=== PATIENT | male | born 1965 | race Hispanic/Latino ===

== ENCOUNTER 2021-05-16 14:42 | Emergency (ER) | payer OTHER ==
[~2021-05-16] VITALS: Ht 172.7 cm; Wt 108.9 kg
[2021-05-16] MEDS ORDERED: KETOROLAC 60 MG VIAL (30MG/ML) IM SCH (15:00)
[2021-05-16] MEDS ORDERED: DIAZEPAM 5 MG TABLET PO SCH (15:00)
[2021-05-16] MEDS ORDERED: DIAZEPAM 5 MG TABLET ONE (15:12)
[2021-05-16] MEDS ORDERED: KETOROLAC 60 MG VIAL (30MG/ML) ONE (15:12)
[2021-05-16] MEDS ORDERED: CYCL10TA16 PO (16:08)
[2021-05-16] MEDS ORDERED: ACET-2247 PO (16:08)
[2021-05-16 16:09] VITALS: BP 152/75
[2021-05-16] MEDS ORDERED: FENTANYL 50 MCG/HR PATCH TD ONE (16:13)
[2021-05-16] MEDS ORDERED: FENTANYL 50 MCG/HR PATCH TD SCH (16:30)
== END 2021-05-16 16:22 | disposition home or self-care (01) ==
LOC: EDH 14:42
DX: S39.012A Strain of muscle, fascia and tendon of lower back, initial encounter (principal); M47.816 Spondylosis without myelopathy or radiculopathy, lumbar region; E66.9 Obesity, unspecified; Z68.36 Body mass index [BMI] 36.0-36.9, adult; X58.XXXA Exposure to other specified factors, initial encounter; Y93.89 Activity, other specified; Y92.89 Other specified places as the place of occurrence of the external cause; Y99.8 Other external cause status
CPT/HCPCS: 72131; 96372; 99284; J1885

== ENCOUNTER 2021-05-24 07:29 | Inpatient (IN) | payer OTHER ==
[~2021-05-24] VITALS: Ht 172.7 cm; Wt 107.1 kg
[~2021-05-24 07:29] MED LIST: ACET-2247 PO; CYCL10TA16 PO
[2021-05-24] MEDS ORDERED: KETOROLAC 30MG VIAL (30MG/ML) ONE (08:15)
[2021-05-24] MEDS ORDERED: MORPHINE 4 MG SYG ONE (08:15)
[2021-05-24 08:18] LABS: EOSINOPHILS % (AUTO) 0.1 % (0.0-8.0); HEMATOCRIT 36.1 % (42-54); LYMPHOCYTES % (AUTO) 4.1 % (21.0-51.0); MEAN CORPUSCULAR HEMOGLOBIN 33.1 pg (27.0-33.0); MEAN CORPUSCULAR HGB CONC 35.2 g/dL (32.0-36.0); MONOCYTES % (AUTO) 6.1 % (3.0-13.0); NEUTROPHILS % (AUTO) 86.5 % (40.0-77.0); NUCLEATED RED BLOOD CELLS 0.1 % (0.0-0.19); PLATELET COUNT (AUTO) 134 K/uL (130-400); RED BLOOD CELL COUNT(AUTO) 3.84 MIL/uL (4.50-6.20); RED CELL DISTRIBUTION WIDTH 12.6 % (11.0-15.5)
[2021-05-24 08:24] LABS: WHITE BLOOD COUNT (AUTO) 33.4 K/uL (4.8-10.8)
[2021-05-24] MEDS ORDERED: 0.9%NACL 1000ML 1,000 ML IV ONE ×3 (08:30→10:25)
[2021-05-24] MEDS ORDERED: KETOROLAC 30MG VIAL (30MG/ML) IV ONE (08:30)
[2021-05-24] MEDS ORDERED: MORPHINE 4 MG SYG IV ONE (08:30)
[2021-05-24 08:42] LABS: BILIRUBIN,TOTAL 7.6 mg/dL (0.2-1.0); CREATININE 1.5 mg/dL (0.5-1.5); TOTAL PROTEIN, SERUM 7.7 g/dL (6.0-8.3)
[2021-05-24 08:49] LABS: BAND NEUTROPHILS % (MANUAL) 6 % (0-2); LYMPHOCYTES % (MANUAL) 6 % (22-44); MAN.DIFF COMMENT-IMPRESSION MANUAL DIFFERENTIAL; MONOCYTES % (MANUAL) 6 % (2-9); SEGMENTED NEUTROPHILS % 82 % (40-70)
[2021-05-24 08:50] LABS: CRP QUANTITATIVE 216.6 mg/L (0.00-9.0); PLATELET MORPHOLOGY COMMENT ADEQUATE
[2021-05-24] MEDS ORDERED: ZOSYN 3.375GM +NS 50ML IV ONE (10:00)
[2021-05-24] MEDS ORDERED: ZOSYN 3.375GM+NS 50ML 50 ML ONE (10:25)
[2021-05-24] MEDS ORDERED: ONDANSETRON 4MG INJ IV PRN (10:30)
[2021-05-24] MEDS ORDERED: ZOLPIDEM TARTRATE 5 MG TAB PO PRN (10:30)
[2021-05-24] MEDS ORDERED: DiphenhydrAMINE HCL 50 MG/ML VIAL IV PRN (10:30)
[2021-05-24] MEDS ORDERED: GUAIFENESIN-DM 200/20 MG 10 ML PO PRN (10:30)
[2021-05-24] MEDS ORDERED: LACTULOSE 20 GM/30 ML UDCUP PO PRN (10:30)
[2021-05-24] MEDS ORDERED: DIPHENHYDRAMINE HCL 25 MG CAPSULE PO PRN (10:30)
[2021-05-24] MEDS: 0.9%NACL 1000ML 1,000 ML IV SCH (11:40)
[2021-05-24] MEDS: ZOSYN 3.375GM+NS 50ML 50 ML IV SCH ×2 (12:12→21:18)
[2021-05-24 14:04] LABS: APPEARANCE,URINE Cloudy (CLEAR); BILIRUBIN,URINE Moderate (NEGATIVE); COLOR,URINE Dark Yellow (YELLOW); GLUCOSE, URINE (UA) Negative (NEGATIVE); KETONES,URINE Negative (NEGATIVE); LEUKOCYTE ESTERASE ,URINE Large (NEGATIVE); NITRATE,URINE Negative (NEGATIVE); OCCULT BLOOD,URINE Large (NEGATIVE); PROTEIN,URINE Trace mg/dL (NEGATIVE)
[2021-05-24 14:11] LABS: AMPHET/METH SCREEN,URINE NEGATIVE (NEGATIVE); BARBITURATE SCREEN, URINE NEGATIVE (NEGATIVE); BENZODIAZEPINES SCREEN,URINE NEGATIVE (NEGATIVE); CANNABINOID SCREEN,URINE POSITIVE (NEGATIVE); COCAINE SCREEN,URINE POSITIVE (NEGATIVE); OPIATE SCREEN,URINE NEGATIVE (NEGATIVE); PHENCYCLIDINE SCREEN,URINE NEGATIVE (NEGATIVE)
[2021-05-24 14:12] LABS: BACTERIA,URINE Moderate /HPF (None Seen); SQUAMOUS EPITHELIAL CELL,UR Rare /HPF (0-2)
[2021-05-24] MEDS: 0.9% NACL 250ML IVPB SCH (17:22)
[2021-05-24] MEDS: DOXYCYCLINE 100MG+NS 250ML IV SCH (17:22)
[2021-05-24 19:33] VITALS: BP 117/51
[2021-05-24] MEDS: ACETAMINOPHEN 325 MG TAB PO PRN (21:16)
[2021-05-24] MEDS: FAMOTIDINE 20MG VIAL IV SCH (21:18)
[2021-05-24 23:28] VITALS: BP 137/82
[2021-05-25 03:06] VITALS: BP 143/70
[2021-05-25] MEDS: 0.9%NACL 1000ML 1,000 ML IV SCH ×3 (03:07→16:07)
[2021-05-25] MEDS: DOXYCYCLINE 100MG+NS 250ML IV SCH ×2 (03:07→17:02)
[2021-05-25] MEDS: 0.9% NACL 250ML IVPB SCH ×2 (03:07→17:03)
[2021-05-25] MEDS: ZOSYN 3.375GM+NS 50ML 50 ML IV SCH (04:37)
[2021-05-25 05:17] LABS: EOSINOPHILS % (AUTO) 0.2 % (0.0-8.0); HEMATOCRIT 36.1 % (42-54); LYMPHOCYTES % (AUTO) 6.2 % (21.0-51.0); MEAN CORPUSCULAR HEMOGLOBIN 32.7 pg (27.0-33.0); MEAN CORPUSCULAR HGB CONC 34.9 g/dL (32.0-36.0); MEAN CORPUSCULAR VOLUME 93.8 fL (79-99); MONOCYTES % (AUTO) 8.2 % (3.0-13.0); NEUTROPHILS % (AUTO) 81.1 % (40.0-77.0); NUCLEATED RED BLOOD CELLS 0.1 % (0.0-0.19); PLATELET COUNT (AUTO) 163 K/uL (130-400); RED BLOOD CELL COUNT(AUTO) 3.85 MIL/uL (4.50-6.20); RED CELL DISTRIBUTION WIDTH 13.1 % (11.0-15.5)
[2021-05-25 05:24] LABS: WHITE BLOOD COUNT (AUTO) 36.5 K/uL (4.8-10.8)
[2021-05-25 05:35] LABS: BILIRUBIN,TOTAL 7.8 mg/dL (0.2-1.0); CREATININE 1.8 mg/dL (0.5-1.5); POTASSIUM 4.1 mmol/L (3.5-5.1)
[2021-05-25 07:51] VITALS: BP 148/90
[2021-05-25 08:14] LABS: HEPATITIS B CORE IGM Negative (Negative); HEPATITIS Bs ANTIGEN SCREEN P Negative (Negative)
[2021-05-25] MEDS: FAMOTIDINE 20MG VIAL IV SCH ×2 (08:42→21:51)
[2021-05-25] MEDS ORDERED: PHARMACY COMMUNICATION MISC PRN (10:30)
[2021-05-25] MEDS ORDERED: LORAZEPAM 2 MG/ML 1 ML VIAL IVP PRN ×3 (10:30→22:00)
[2021-05-25] MEDS ORDERED: CHLORDIAZEPOXIDE HCL 25 MG CAP PO PRN (10:30)
[2021-05-25] MEDS ORDERED: THIAMINE HCL 100 MG, FOLIC ACID 1 MG, M.V.I. IV [ADULT] 10 ML in 0.9%NACL 1000ML 1,000 ML IV SCH (10:30)
[2021-05-25] MEDS ORDERED: VANCOMYCIN PROTOCOL PER PHARMACY IV PRN (10:30)
[2021-05-25] MEDS ORDERED: ONDANSETRON 4MG INJ IV PRN (10:30)
[2021-05-25] MEDS ORDERED: COMPOUND IV REFRIGERATED 1 EACH IVSOLN MISC PRN (11:00)
[2021-05-25 11:06] LABS: INR 1.3 (0.85-1.15); PROTHROMBIN TIME 13.8 SEC (9.6-11.6)
[2021-05-25 11:07] LABS: PARTIAL THROMBOPLASTIN TIME 39.6 SEC (26.3-35.5)
[2021-05-25] MEDS: CEFTRIAXONE 2GM VIAL IVP SCH (11:09)
[2021-05-25 11:16] VITALS: BP 143/86
[2021-05-25] MEDS: VANCOMYCIN 1.5GM/NS 250ML IV SCH ×2 (12:47)
[2021-05-25 16:02] VITALS: BP 157/89
[2021-05-25] MEDS ORDERED: PHYTONADIONE 10 MG in 0.9%NACL 50ML 50 ML IVPB ONE (18:00)
[2021-05-25] MEDS ORDERED: CHLORDIAZEPOXIDE HCL 25 MG CAP PO ONE (18:00)
[2021-05-25 20:55] VITALS: BP 153/89
[2021-05-25] MEDS: CHLORDIAZEPOXIDE HCL 25 MG CAP PO SCH (21:51)
[2021-05-26] VITALS (13 sets, daily range): BP systolic 102–180; BP diastolic 53–98
[2021-05-26 04:42] LABS: BASOPHILS % (AUTO) 0.1 % (0.0-5.0); EOSINOPHILS % (AUTO) 0.1 % (0.0-8.0); HEMATOCRIT 34.1 % (42-54); LYMPHOCYTES % (AUTO) 6.6 % (21.0-51.0); MEAN CORPUSCULAR HEMOGLOBIN 32.4 pg (27.0-33.0); MEAN CORPUSCULAR HGB CONC 33.7 g/dL (32.0-36.0); MEAN CORPUSCULAR VOLUME 96.1 fL (79-99); MONOCYTES % (AUTO) 8.8 % (3.0-13.0); NEUTROPHILS % (AUTO) 78.1 % (40.0-77.0); NUCLEATED RED BLOOD CELLS 0.1 % (0.0-0.19); PLATELET COUNT (AUTO) 148 K/uL (130-400); RED BLOOD CELL COUNT(AUTO) 3.55 MIL/uL (4.50-6.20); RED CELL DISTRIBUTION WIDTH 12.9 % (11.0-15.5)
[2021-05-26 04:48] LABS: WHITE BLOOD COUNT (AUTO) 32.5 K/uL (4.8-10.8)
[2021-05-26 04:56] LABS: ALBUMIN 1.7 g/dL (3.5-5.0); BILIRUBIN,TOTAL 7.4 mg/dL (0.2-1.0); CREATININE 1.4 mg/dL (0.5-1.5); POTASSIUM 4.1 mmol/L (3.5-5.1); TOTAL PROTEIN, SERUM 7.5 g/dL (6.0-8.3)
[2021-05-26 05:00] LABS: B-TYPE NATRIURETIC PEPTIDE 104 pg/mL (0-100)
[2021-05-26 05:18] LABS: ABG BASE EXCESS -0.3 mmol/L (-2.0-3.0); ABG HCO3 22.5 mmol/L (21.0-28.0); ABG OXYGEN SATURATION 96.1 % (95.0-99.0); ABG PCO2 32 mmHg (35-48)
[2021-05-26] MEDS: DOXYCYCLINE 100MG+NS 250ML IV SCH ×2 (05:20→16:01)
[2021-05-26] MEDS: 0.9% NACL 250ML IVPB SCH ×2 (05:20→16:35)
[2021-05-26 05:39] LABS: BAND NEUTROPHILS % (MANUAL) 1 % (0-2); BASOPHILS % (MANUAL) 1 % (0-2); LYMPHOCYTES % (MANUAL) 4 % (22-44); MONOCYTES % (MANUAL) 6 % (2-9); SEGMENTED NEUTROPHILS % 88 % (40-70)
[2021-05-26 05:40] LABS: MAN.DIFF COMMENT-IMPRESSION MANUAL DIFFERENTIAL; PLATELET MORPHOLOGY COMMENT ADEQUATE
[2021-05-26] MEDS: MULTIVITAMIN TABLET PO SCH (09:25)
[2021-05-26] MEDS: CHLORDIAZEPOXIDE HCL 25 MG CAP PO SCH ×3 (09:25→21:16)
[2021-05-26] MEDS: THIAMINE HCL 100 MG/ML 2ML VIAL IM SCH (09:25)
[2021-05-26] MEDS: FAMOTIDINE 20MG VIAL IV SCH ×2 (09:25→21:16)
[2021-05-26] MEDS: CEFTRIAXONE 2GM VIAL IVP SCH (09:25)
[2021-05-26] MEDS: FOLIC ACID 1 MG TABLET PO SCH (09:25)
[2021-05-26] MEDS: VANCOMYCIN 1.5GM/NS 250ML IV SCH ×2 (10:40)
[2021-05-26 11:19] LABS: ABG BASE EXCESS 0.1 mmol/L (-2.0-3.0); ABG HCO3 23.2 mmol/L (21.0-28.0); ABG OXYGEN SATURATION 92.6 % (95.0-99.0); ABG PCO2 33 mmHg (35-48)
[2021-05-26 12:23] LABS: HEMATOCRIT 33.8 % (42-54); MEAN CORPUSCULAR HGB CONC 34.6 g/dL (32.0-36.0); MEAN CORPUSCULAR VOLUME 95.2 fL (79-99); NUCLEATED RED BLOOD CELLS 0.1 % (0.0-0.19); RED BLOOD CELL COUNT(AUTO) 3.55 MIL/uL (4.50-6.20); RED CELL DISTRIBUTION WIDTH 13.2 % (11.0-15.5); WHITE BLOOD COUNT (AUTO) 29.3 K/uL (4.8-10.8)
[2021-05-26 12:39] LABS: INR 1.17 (0.85-1.15); PROTHROMBIN TIME 12.6 SEC (9.6-11.6)
[2021-05-26 12:41] LABS: PARTIAL THROMBOPLASTIN TIME 36.2 SEC (26.3-35.5)
[2021-05-26] MEDS: THIAMINE HCL 100 MG, FOLIC ACID 1 MG, M.V.I. IV [ADULT] 10 ML in 0.9%NACL 1000ML 1,000 ML IV SCH (13:00)
[2021-05-26] MEDS ORDERED: ONDANSETRON 4MG INJ ONE (13:47)
[2021-05-26] MEDS ORDERED: MIDAZOLAM HCL 1 MG/ML 2ML VIAL ONE (13:47)
[2021-05-26] MEDS ORDERED: DEXAMETHASONE SOD PHOSPHATE 10MG/ML 1ML VIAL ONE (13:47)
[2021-05-26] MEDS ORDERED: GLYCOPYRROLATE 1 MG/5 ML SYRINGE ONE (13:47)
[2021-05-26] MEDS ORDERED: LIDOCAINE PF 100MG/5ML (2%) SYRINGE 5ML ONE (13:47)
[2021-05-26] MEDS ORDERED: SUCCINYLCHOLINE 200MG/10ML SYR ONE (13:47)
[2021-05-26] MEDS ORDERED: PROPOFOL 10 MG/ML 20ML VIAL IV ONE ×2 (13:47→13:49)
[2021-05-26] MEDS ORDERED: FENTANYL CITRATE PF 50 MCG/1 ML 2ML VIAL ONE (13:48)
[2021-05-26] MEDS ORDERED: ROCURONIUM 10MG/1ML SYR 10 MG/ML ML ONE ×2 (13:48→15:54)
[2021-05-26] MEDS ORDERED: NEOSTIGMINE 5MG/5ML SYR IV ONE (13:48)
[2021-05-26] MEDS ORDERED: IODIXANOL 320 MG/ML 100 ML VIAL ONE (14:02)
[2021-05-26] MEDS ORDERED: LIDOCAINE HCL 1% MDV 50ML VIAL ONE ×2 (14:02)
[2021-05-26] MEDS ORDERED: KETAMINE 50MG/ML SYRINGE 50 MG/ML DISP.SYRIN IV ONE (14:08)
[2021-05-26] MEDS ORDERED: 0.9%NACL 1000ML 1,000 ML IV ONE (15:59)
[2021-05-26] MEDS ORDERED: PROPOFOL 1000 MG/100 ML 100 ML IV ONE (16:00)
[2021-05-26] MEDS ORDERED: PHARMACY COMMUNICATION MISC SCH (16:00)
[2021-05-26 17:55] LABS: ABG BASE EXCESS 0.5 mmol/L (-2.0-3.0); ABG HCO3 25.2 mmol/L (21.0-28.0); ABG OXYGEN SATURATION 94.2 % (95.0-99.0); ABG PCO2 41 mmHg (35-48)
[2021-05-27] VITALS (26 sets, daily range): BP systolic 104–144; BP diastolic 59–81
[2021-05-27] MEDS: PROPOFOL 1000 MG/100 ML 100 ML IV SCH ×5 (00:42→19:42)
[2021-05-27 04:39] LABS: BASOPHILS % (AUTO) 0.7 % (0.0-5.0); HEMATOCRIT 32.6 % (42-54); LYMPHOCYTES % (AUTO) 7.6 % (21.0-51.0); MEAN CORPUSCULAR HEMOGLOBIN 32.6 pg (27.0-33.0); MEAN CORPUSCULAR VOLUME 95.9 fL (79-99); MONOCYTES % (AUTO) 6.8 % (3.0-13.0); NUCLEATED RED BLOOD CELLS 0.1 % (0.0-0.19); PLATELET COUNT (AUTO) 151 K/uL (130-400); RED CELL DISTRIBUTION WIDTH 13.2 % (11.0-15.5)
[2021-05-27 05:03] LABS: ALBUMIN 1.5 g/dL (3.5-5.0); BILIRUBIN,TOTAL 4.7 mg/dL (0.2-1.0); CREATININE 1.6 mg/dL (0.5-1.5); POTASSIUM 4.9 mmol/L (3.5-5.1); TOTAL PROTEIN, SERUM 7.7 g/dL (6.0-8.3)
[2021-05-27] MEDS: DOXYCYCLINE 100MG+NS 250ML IV SCH ×2 (05:27→16:00)
[2021-05-27] MEDS: 0.9% NACL 250ML IVPB SCH ×2 (05:27→16:00)
[2021-05-27] MEDS: MIDAZOLAM 100MG-0.9% NS 100ML 100 ML IV SCH (06:07)
[2021-05-27 07:26] LABS: ABG BASE EXCESS 0.9 mmol/L (-2.0-3.0); ABG HCO3 24.7 mmol/L (21.0-28.0); ABG OXYGEN SATURATION 95.9 % (95.0-99.0); ABG PCO2 37 mmHg (35-48)
[2021-05-27] MEDS: FAMOTIDINE 20MG VIAL IV SCH ×2 (08:40→20:29)
[2021-05-27] MEDS: CHLORDIAZEPOXIDE HCL 25 MG CAP PO SCH ×3 (08:40→20:00)
[2021-05-27] MEDS: MULTIVITAMIN TABLET PO SCH (08:40)
[2021-05-27] MEDS: FOLIC ACID 1 MG TABLET PO SCH (08:40)
[2021-05-27] MEDS: THIAMINE HCL 100 MG/ML 2ML VIAL IM SCH (08:41)
[2021-05-27] MEDS ORDERED: LACTATED RINGERS 1000ML 1,000 ML IV ONE (10:02)
[2021-05-27] MEDS: CEFTRIAXONE 2GM VIAL IVP SCH (10:05)
[2021-05-27] MEDS: NICOTINE 21 MG/ 24 HR PATCH TD SCH (10:05)
[2021-05-27] MEDS: LACTATED RINGERS 1000ML 1,000 ML IV SCH ×3 (10:29→14:30)
[2021-05-27] MEDS ORDERED: LACTATED RINGERS 1000ML 1,000 ML IV SCH (10:30)
[2021-05-27] MEDS ORDERED: VANCOMYCIN 1G 1 GM in 0.9% NACL 250ML 250 ML IV SCH (11:00)
[2021-05-27] MEDS ORDERED: VANCOMYCIN 1G/250ML KIT 250 ML IV ONE (11:21)
[2021-05-27] MEDS ORDERED: VANCOMYCIN 1G/250ML KIT 250 ML IV SCH (11:30)
[2021-05-27] MEDS: PHARMACY COMMUNICATION MISC SCH ×6 (13:00→22:51)
[2021-05-27] MEDS: THIAMINE HCL 100 MG, FOLIC ACID 1 MG, M.V.I. IV [ADULT] 10 ML in 0.9%NACL 1000ML 1,000 ML IV SCH (13:49)
[2021-05-27] MEDS: ALBUMIN (HUMAN) 25% 100 ML IV SCH ×4 (14:59→17:17)
[2021-05-28] VITALS (43 sets, daily range): BP systolic 131–168; BP diastolic 49–90
[2021-05-28] MEDS: PROPOFOL 1000 MG/100 ML 100 ML IV SCH ×2 (00:46→05:29)
[2021-05-28] MEDS: MIDAZOLAM 100MG-0.9% NS 100ML 100 ML IV SCH (00:46)
[2021-05-28] MEDS: PHARMACY COMMUNICATION MISC SCH ×4 (01:00→06:29)
[2021-05-28] MEDS: LACTATED RINGERS 1000ML 1,000 ML IV SCH ×2 (02:45→20:22)
[2021-05-28 03:22] LABS: BASOPHILS % (AUTO) 0.4 % (0.0-5.0); HEMATOCRIT 31.6 % (42-54); LYMPHOCYTES % (AUTO) 7.9 % (21.0-51.0); MEAN CORPUSCULAR HEMOGLOBIN 33.4 pg (27.0-33.0); MEAN CORPUSCULAR HGB CONC 33.5 g/dL (32.0-36.0); MEAN CORPUSCULAR VOLUME 99.7 fL (79-99); MONOCYTES % (AUTO) 9.2 % (3.0-13.0); PLATELET COUNT (AUTO) 121 K/uL (130-400); RED BLOOD CELL COUNT(AUTO) 3.17 MIL/uL (4.50-6.20); RED CELL DISTRIBUTION WIDTH 13.2 % (11.0-15.5); WHITE BLOOD COUNT (AUTO) 16.6 K/uL (4.8-10.8)
[2021-05-28 03:36] LABS: ALBUMIN 2.6 g/dL (3.5-5.0); BILIRUBIN,TOTAL 3.1 mg/dL (0.2-1.0); CREATININE 1.3 mg/dL (0.5-1.5); POTASSIUM 4.8 mmol/L (3.5-5.1); TOTAL PROTEIN, SERUM 8.2 g/dL (6.0-8.3)
[2021-05-28 04:02] LABS: ABG BASE EXCESS -0.7 mmol/L (-2.0-3.0); ABG HCO3 23.5 mmol/L (21.0-28.0); ABG PCO2 37 mmHg (35-48)
[2021-05-28] MEDS: 0.9% NACL 250ML IVPB SCH ×2 (05:28→16:12)
[2021-05-28] MEDS: DOXYCYCLINE 100MG+NS 250ML IV SCH ×2 (05:28→16:09)
[2021-05-28] MEDS: DEXMEDETOMIDINE 400MCG/NS100ML IV SCH (08:31)
[2021-05-28] MEDS: FAMOTIDINE 20MG VIAL IV SCH ×2 (08:32→20:12)
[2021-05-28] MEDS: NICOTINE 21 MG/ 24 HR PATCH TD SCH (08:33)
[2021-05-28] MEDS: THIAMINE HCL 100 MG/ML 2ML VIAL IM SCH (08:33)
[2021-05-28] MEDS: MULTIVITAMIN TABLET PO SCH (08:33)
[2021-05-28] MEDS: FOLIC ACID 1 MG TABLET PO SCH (08:34)
[2021-05-28] MEDS: CHLORDIAZEPOXIDE HCL 25 MG CAP PO SCH ×3 (08:34→20:12)
[2021-05-28] MEDS: ALBUMIN (HUMAN) 25% 100 ML IV SCH ×4 (08:36→12:00)
[2021-05-28] MEDS: CEFTRIAXONE 2GM VIAL IVP SCH (10:30)
[2021-05-28] MEDS ORDERED: VANCOMYCIN 1.5GM/NS 250ML IV ONE ×2 (14:00)
[2021-05-29] VITALS (44 sets, daily range): BP systolic 125–196; BP diastolic 58–96
[2021-05-29 03:34] LABS: BASOPHILS % (AUTO) 0.2 % (0.0-5.0); EOSINOPHILS % (AUTO) 0.1 % (0.0-8.0); LYMPHOCYTES % (AUTO) 11.8 % (21.0-51.0); MEAN CORPUSCULAR HEMOGLOBIN 32.3 pg (27.0-33.0); MEAN CORPUSCULAR HGB CONC 31.7 g/dL (32.0-36.0); MEAN CORPUSCULAR VOLUME 101.7 fL (79-99); MONOCYTES % (AUTO) 8.9 % (3.0-13.0); NEUTROPHILS % (AUTO) 76.5 % (40.0-77.0); PLATELET COUNT (AUTO) 101 K/uL (130-400); RED BLOOD CELL COUNT(AUTO) 3.44 MIL/uL (4.50-6.20); RED CELL DISTRIBUTION WIDTH 13.4 % (11.0-15.5); WHITE BLOOD COUNT (AUTO) 12.2 K/uL (4.8-10.8)
[2021-05-29] MEDS: PROPOFOL 1000 MG/100 ML 100 ML IV SCH ×3 (03:37→15:49)
[2021-05-29] MEDS: MIDAZOLAM 100MG-0.9% NS 100ML 100 ML IV SCH (03:38)
[2021-05-29 03:43] LABS: CREATININE 1.2 mg/dL (0.5-1.5); POTASSIUM 4.6 mmol/L (3.5-5.1)
[2021-05-29] MEDS: 0.9% NACL 250ML IVPB SCH ×4 (03:47→19:52)
[2021-05-29] MEDS: DOXYCYCLINE 100MG+NS 250ML IV SCH ×2 (03:47→15:48)
[2021-05-29 03:48] LABS: ALBUMIN 2.5 g/dL (3.5-5.0); BILIRUBIN,TOTAL 3.1 mg/dL (0.2-1.0); TOTAL PROTEIN, SERUM 8.2 g/dL (6.0-8.3)
[2021-05-29 04:08] LABS: ABG BASE EXCESS 0.8 mmol/L (-2.0-3.0); ABG HCO3 24.3 mmol/L (21.0-28.0); ABG OXYGEN SATURATION 95.2 % (95.0-99.0); ABG PCO2 35 mmHg (35-48)
[2021-05-29] MEDS: LACTATED RINGERS 1000ML 1,000 ML IV SCH (05:10)
[2021-05-29] MEDS: VANCOMYCIN 1G/250ML KIT 250 ML IV SCH ×2 (05:10→17:56)
[2021-05-29] MEDS: NICOTINE 21 MG/ 24 HR PATCH TD SCH (07:59)
[2021-05-29] MEDS: CEFTRIAXONE 2GM VIAL IVP SCH (08:02)
[2021-05-29] MEDS: CHLORDIAZEPOXIDE HCL 25 MG CAP PO SCH ×3 (08:02→20:15)
[2021-05-29] MEDS: FAMOTIDINE 20MG VIAL IV SCH ×2 (08:02→20:15)
[2021-05-29] MEDS: MULTIVITAMIN TABLET PO SCH (08:02)
[2021-05-29] MEDS ORDERED: HYDRALAZINE 20MG/ML VIAL ONE (11:15)
[2021-05-30] VITALS (41 sets, daily range): BP systolic 90–193; BP diastolic 50–104
[2021-05-30] MEDS: PROPOFOL 1000 MG/100 ML 100 ML IV SCH ×3 (01:36→13:29)
[2021-05-30] MEDS: 0.9% NACL 250ML IVPB SCH ×3 (03:10→15:28)
[2021-05-30] MEDS: DOXYCYCLINE 100MG+NS 250ML IV SCH ×2 (03:10→15:28)
[2021-05-30] MEDS: VANCOMYCIN 1G/250ML KIT 250 ML IV SCH (05:05)
[2021-05-30 05:19] LABS: BASOPHILS % (AUTO) 0.2 % (0.0-5.0); EOSINOPHILS % (AUTO) 0.4 % (0.0-8.0); HEMATOCRIT 35.5 % (42-54); LYMPHOCYTES % (AUTO) 12.2 % (21.0-51.0); MEAN CORPUSCULAR HEMOGLOBIN 32.7 pg (27.0-33.0); MEAN CORPUSCULAR HGB CONC 31.8 g/dL (32.0-36.0); MEAN CORPUSCULAR VOLUME 102.6 fL (79-99); MONOCYTES % (AUTO) 6.2 % (3.0-13.0); NEUTROPHILS % (AUTO) 79.6 % (40.0-77.0); PLATELET COUNT (AUTO) 82 K/uL (130-400); RED BLOOD CELL COUNT(AUTO) 3.46 MIL/uL (4.50-6.20); RED CELL DISTRIBUTION WIDTH 13.2 % (11.0-15.5); WHITE BLOOD COUNT (AUTO) 12.6 K/uL (4.8-10.8)
[2021-05-30 05:33] LABS: ALBUMIN 2.2 g/dL (3.5-5.0); BILIRUBIN,TOTAL 3.7 mg/dL (0.2-1.0); CREATININE 1.1 mg/dL (0.5-1.5); POTASSIUM 4.8 mmol/L (3.5-5.1); TOTAL PROTEIN, SERUM 8.1 g/dL (6.0-8.3)
[2021-05-30] MEDS: MIDAZOLAM 100MG-0.9% NS 100ML 100 ML IV SCH (05:46)
[2021-05-30 07:15] LABS: ABG BASE EXCESS -0.9 mmol/L (-2.0-3.0); ABG HCO3 22.3 mmol/L (21.0-28.0); ABG OXYGEN SATURATION 96.2 % (95.0-99.0); ABG PCO2 32 mmHg (35-48)
[2021-05-30] MEDS: CHLORDIAZEPOXIDE HCL 25 MG CAP PO SCH ×3 (08:16→20:18)
[2021-05-30] MEDS: FAMOTIDINE 20MG VIAL IV SCH ×2 (08:16→20:18)
[2021-05-30] MEDS: MULTIVITAMIN TABLET PO SCH (08:16)
[2021-05-30] MEDS: NICOTINE 21 MG/ 24 HR PATCH TD SCH (08:17)
[2021-05-30] MEDS: DEXMEDETOMIDINE 400MCG/NS100ML IV SCH (08:45)
[2021-05-30] MEDS ORDERED: VANCOMYCIN 1.5GM/NS 250ML IV ONE ×4 (09:30→18:00)
[2021-05-30] MEDS ORDERED: HYDRALAZINE 20MG/ML VIAL ONE (09:46)
[2021-05-30] MEDS: CEFTRIAXONE 2GM VIAL IVP SCH (09:47)
[2021-05-30] MEDS ORDERED: HYDRALAZINE 20MG/ML VIAL IV ONE (10:00)
[2021-05-30] MEDS ORDERED: FENTANYL CITRATE PF 0.05 MG/ML 1,000 MCG in 0.9%NACL 100ML 100 ML IVPB SCH (11:00)
[2021-05-30 11:37] LABS: ABG BASE EXCESS 0.2 mmol/L (-2.0-3.0); ABG HCO3 22.2 mmol/L (21.0-28.0); ABG OXYGEN SATURATION 91.7 % (95.0-99.0); ABG PCO2 29 mmHg (35-48)
[2021-05-30] MEDS: FENTANYL 2500MCG+NS 250ML 250 ML IV SCH (12:34)
[2021-05-30] MEDS: CEFAZOLIN SODIUM 1 GM VIAL IVP SCH (16:40)
[2021-05-31] VITALS (43 sets, daily range): BP systolic 98–174; BP diastolic 27–87
[2021-05-31] MEDS: PROPOFOL 1000 MG/100 ML 100 ML IV SCH ×4 (00:32→16:34)
[2021-05-31] MEDS: CEFAZOLIN SODIUM 1 GM VIAL IVP SCH ×3 (00:40→15:42)
[2021-05-31 04:23] LABS: BASOPHILS % (AUTO) 0.3 % (0.0-5.0); EOSINOPHILS % (AUTO) 0.7 % (0.0-8.0); HEMATOCRIT 35.1 % (42-54); LYMPHOCYTES % (AUTO) 11.9 % (21.0-51.0); MEAN CORPUSCULAR HEMOGLOBIN 32.7 pg (27.0-33.0); MEAN CORPUSCULAR HGB CONC 31.3 g/dL (32.0-36.0); MEAN CORPUSCULAR VOLUME 104.5 fL (79-99); MONOCYTES % (AUTO) 6.4 % (3.0-13.0); NEUTROPHILS % (AUTO) 79.6 % (40.0-77.0); PLATELET COUNT (AUTO) 100 K/uL (130-400); RED BLOOD CELL COUNT(AUTO) 3.36 MIL/uL (4.50-6.20); RED CELL DISTRIBUTION WIDTH 13.4 % (11.0-15.5); WHITE BLOOD COUNT (AUTO) 14.9 K/uL (4.8-10.8)
[2021-05-31 04:37] LABS: ALBUMIN 2.1 g/dL (3.5-5.0); BILIRUBIN,TOTAL 3.4 mg/dL (0.2-1.0); CREATININE 1.3 mg/dL (0.5-1.5); TOTAL PROTEIN, SERUM 8.2 g/dL (6.0-8.3)
[2021-05-31] MEDS ORDERED: VANCOMYCIN 1G/250ML KIT 250 ML IV SCH (06:00)
[2021-05-31] MEDS ORDERED: 0.9% NACL 250ML IVPB SCH (06:00)
[2021-05-31] MEDS: THIAMINE HCL 100 MG TABLET PO SCH (07:43)
[2021-05-31] MEDS: CHLORDIAZEPOXIDE HCL 25 MG CAP PO SCH ×3 (07:43→21:29)
[2021-05-31] MEDS: FOLIC ACID 1 MG TABLET PO SCH (07:43)
[2021-05-31] MEDS: FAMOTIDINE 20MG VIAL IV SCH ×2 (07:43→21:29)
[2021-05-31] MEDS: MULTIVITAMIN TABLET PO SCH (07:43)
[2021-05-31] MEDS: NICOTINE 21 MG/ 24 HR PATCH TD SCH (07:43)
[2021-05-31] MEDS: FENTANYL 2500MCG+NS 250ML 250 ML IV SCH (09:41)
[2021-05-31] MEDS: LACTULOSE 20 GM/30 ML UDCUP PO SCH ×2 (13:02→21:29)
[2021-05-31 14:34] LABS: ABG BASE EXCESS -1.8 mmol/L (-2.0-3.0); ABG HCO3 23.7 mmol/L (21.0-28.0); ABG OXYGEN SATURATION 93.2 % (95.0-99.0); ABG PCO2 43 mmHg (35-48)
[2021-06-01] VITALS (31 sets, daily range): BP systolic 96–183; BP diastolic 50–100
[2021-06-01] MEDS: CEFAZOLIN SODIUM 1 GM VIAL IVP SCH ×3 (00:15→16:15)
[2021-06-01] MEDS: PROPOFOL 1000 MG/100 ML 100 ML IV SCH ×2 (00:36→05:15)
[2021-06-01 03:52] LABS: BASOPHILS % (AUTO) 0.2 % (0.0-5.0); EOSINOPHILS % (AUTO) 1.3 % (0.0-8.0); HEMATOCRIT 37.6 % (42-54); LYMPHOCYTES % (AUTO) 8.3 % (21.0-51.0); MEAN CORPUSCULAR HEMOGLOBIN 32.9 pg (27.0-33.0); MEAN CORPUSCULAR HGB CONC 31.1 g/dL (32.0-36.0); MEAN CORPUSCULAR VOLUME 105.6 fL (79-99); MONOCYTES % (AUTO) 6.7 % (3.0-13.0); NEUTROPHILS % (AUTO) 82.5 % (40.0-77.0); PLATELET COUNT (AUTO) 121 K/uL (130-400); RED BLOOD CELL COUNT(AUTO) 3.56 MIL/uL (4.50-6.20); RED CELL DISTRIBUTION WIDTH 13.2 % (11.0-15.5); WHITE BLOOD COUNT (AUTO) 17.4 K/uL (4.8-10.8)
[2021-06-01 04:03] LABS: INR 1.19 (0.85-1.15); PROTHROMBIN TIME 12.8 SEC (9.6-11.6)
[2021-06-01 04:11] LABS: ALBUMIN 2.1 g/dL (3.5-5.0); BILIRUBIN,TOTAL 4.2 mg/dL (0.2-1.0); CREATININE 1.2 mg/dL (0.5-1.5); POTASSIUM 5.6 mmol/L (3.5-5.1); TOTAL PROTEIN, SERUM 8.8 g/dL (6.0-8.3)
[2021-06-01] MEDS: LACTULOSE 20 GM/30 ML UDCUP PO SCH ×3 (05:14→21:00)
[2021-06-01 06:38] LABS: ABG BASE EXCESS -2.3 mmol/L (-2.0-3.0); ABG OXYGEN SATURATION 96.5 % (95.0-99.0); ABG PCO2 42 mmHg (35-48)
[2021-06-01] MEDS ORDERED: CALCIUM GLUC 1GM/10ML VIAL IV PRN ×2 (09:00→19:00)
[2021-06-01] MEDS ORDERED: INSULIN HUMULIN R 100 UNIT/ML 3ML SQ SCH (09:00)
[2021-06-01] MEDS ORDERED: ALBUTEROL 0.083% 2.5 MG/3 ML INH IH SCH (09:00)
[2021-06-01] MEDS: FAMOTIDINE 20MG VIAL IV SCH ×2 (09:39→21:41)
[2021-06-01] MEDS: NICOTINE 21 MG/ 24 HR PATCH TD SCH (09:41)
[2021-06-01] MEDS: FOLIC ACID 1 MG TABLET PO SCH (09:41)
[2021-06-01] MEDS: THIAMINE HCL 100 MG TABLET PO SCH (09:41)
[2021-06-01] MEDS: DEXTROSE 50%-WATER 50 ML DISP.SYRIN IV SCH (09:41)
[2021-06-01] MEDS: CHLORDIAZEPOXIDE HCL 25 MG CAP PO SCH ×2 (09:41→13:59)
[2021-06-01] MEDS: MULTIVITAMIN TABLET PO SCH (09:46)
[2021-06-01] MEDS: SOLU-MEDROL 40MG VIAL IVP SCH ×2 (10:25→21:41)
[2021-06-01] MEDS: INSULIN HUMULIN R 100 UNIT/ML 3ML IV SCH (10:27)
[2021-06-01] MEDS: IPRATROPIUM/ALBUTEROL SULFATE 3 ML SOLUTION IH SCH ×3 (11:47→23:34)
[2021-06-01] MEDS ORDERED: KAYEXALATE 15GM/60ML ONE (14:15)
[2021-06-01] MEDS ORDERED: KAYEXALATE 15GM/60ML PO ONE (14:30)
[2021-06-01] MEDS ORDERED: DEXTROSE 50%-WATER 50 ML DISP.SYRIN IV ONE ×2 (14:30→19:00)
[2021-06-01] MEDS ORDERED: INSULIN HUMULIN R 100 UNIT/ML 3ML IV ONE ×2 (14:30→19:00)
[2021-06-01] MEDS: ACETAMINOPHEN 325 MG TAB PO PRN (17:12)
[2021-06-01] MEDS ORDERED: KAYEXALATE 15GM/60ML RC ONE (19:00)
[2021-06-01] MEDS ORDERED: IPRATROPIUM/ALBUTEROL SULFATE 3 ML SOLUTION IH ONE (19:00)
[2021-06-01 19:29] LABS: ABG BASE EXCESS -0.4 mmol/L (-2.0-3.0); ABG HCO3 23.6 mmol/L (21.0-28.0); ABG OXYGEN SATURATION 97.5 % (95.0-99.0); ABG PCO2 37 mmHg (35-48)
[2021-06-01] MEDS ORDERED: SODIUM ZIRCONIUM CYCLOSILICATE 5 GM POWD.PACK PO SCH (19:30)
[2021-06-01 20:53] LABS: CREATINE KINASE, TOTAL 83 U/L (21-232); LIPASE 356 U/L (114-286); TRIGLYCERIDES 130 mg/dL (30-200)
[2021-06-01] MEDS ORDERED: 0.9%NACL 1000ML 1,000 ML IV SCH (21:00)
[2021-06-02] VITALS (25 sets, daily range): BP systolic 152–210; BP diastolic 80–128
[2021-06-02] MEDS: CEFAZOLIN SODIUM 1 GM VIAL IVP SCH ×3 (00:02→16:14)
[2021-06-02] MEDS: LACTULOSE 20 GM/30 ML UDCUP PO SCH ×3 (02:28→23:10)
[2021-06-02 04:20] LABS: BASOPHILS % (AUTO) 0.2 % (0.0-5.0); HEMATOCRIT 40.6 % (42-54); LYMPHOCYTES % (AUTO) 4.7 % (21.0-51.0); MEAN CORPUSCULAR HEMOGLOBIN 32.3 pg (27.0-33.0); MEAN CORPUSCULAR HGB CONC 31.3 g/dL (32.0-36.0); MEAN CORPUSCULAR VOLUME 103.3 fL (79-99); MONOCYTES % (AUTO) 4.7 % (3.0-13.0); NEUTROPHILS % (AUTO) 89.5 % (40.0-77.0); PLATELET COUNT (AUTO) 154 K/uL (130-400); RED BLOOD CELL COUNT(AUTO) 3.93 MIL/uL (4.50-6.20); RED CELL DISTRIBUTION WIDTH 13.2 % (11.0-15.5); WHITE BLOOD COUNT (AUTO) 17.6 K/uL (4.8-10.8)
[2021-06-02 04:29] LABS: ALBUMIN 2.3 g/dL (3.5-5.0); BILIRUBIN,TOTAL 6.1 mg/dL (0.2-1.0); CREATININE 1.1 mg/dL (0.5-1.5); POTASSIUM 5.1 mmol/L (3.5-5.1); TOTAL PROTEIN, SERUM 9.9 g/dL (6.0-8.3)
[2021-06-02] MEDS: IPRATROPIUM/ALBUTEROL SULFATE 3 ML SOLUTION IH SCH ×3 (06:25→18:47)
[2021-06-02 07:20] LABS: ABG BASE EXCESS -0.5 mmol/L (-2.0-3.0); ABG HCO3 23.8 mmol/L (21.0-28.0); ABG OXYGEN SATURATION 97.7 % (95.0-99.0); ABG PCO2 38 mmHg (35-48)
[2021-06-02] MEDS: MULTIVITAMIN TABLET PO SCH (08:14)
[2021-06-02] MEDS: FAMOTIDINE 20MG VIAL IV SCH ×2 (08:14→23:11)
[2021-06-02] MEDS: AMLODIPINE 5 MG TAB PO SCH (08:14)
[2021-06-02] MEDS: FOLIC ACID 1 MG TABLET PO SCH (08:14)
[2021-06-02] MEDS: SOLU-MEDROL 40MG VIAL IVP SCH ×2 (08:15→23:11)
[2021-06-02] MEDS: THIAMINE HCL 100 MG TABLET PO SCH (08:23)
[2021-06-02] MEDS: LABETALOL 20MG VIAL IV PRN ×3 (08:38→17:53)
[2021-06-02] MEDS: DEXTROSE 50%-WATER 50 ML DISP.SYRIN IV SCH (09:00)
[2021-06-02] MEDS: NICOTINE 21 MG/ 24 HR PATCH TD SCH (09:38)
[2021-06-02] MEDS: THIAMINE HCL 100 MG/ML 2ML VIAL IVP SCH (09:38)
[2021-06-02] MEDS: FENTANYL CITRATE PF 50 MCG/1 ML 2ML VIAL IVP PRN ×2 (09:38→18:45)
[2021-06-02] MEDS: INSULIN HUMULIN R 100 UNIT/ML 3ML IV SCH (10:30)
[2021-06-02] MEDS: ACETAMINOPHEN 325 MG TAB PO PRN (11:21)
[2021-06-02] MEDS: ACETYLCYSTEINE 10% 100MG/ML 4ML VIAL IH SCH ×2 (11:24→18:47)
[2021-06-02] MEDS: CHLORDIAZEPOXIDE HCL 25 MG CAP PO SCH ×2 (14:00→21:00)
[2021-06-02] MEDS ORDERED: RACEPINEPHRINE HCL 2.25% 0.5 ML NEB SOLN ONE (14:51)
[2021-06-02] MEDS ORDERED: PROPOFOL 1000 MG/100 ML 0 ML IV ONE (15:28)
[2021-06-02] MEDS ORDERED: ARTIFICAL TEARS SOL 15 ML OU PRN (16:30)
[2021-06-02] MEDS ORDERED: FUROSEMIDE 40MG VIAL IV ONE (17:00)
[2021-06-02] MEDS ORDERED: DEXMEDETOMIDINE 400MCG/NS100ML IV SCH (19:00)
[2021-06-03] VITALS (22 sets, daily range): BP systolic 115–174; BP diastolic 68–113
[2021-06-03] MEDS: ACETYLCYSTEINE 10% 100MG/ML 4ML VIAL IH SCH ×4 (00:23→18:32)
[2021-06-03] MEDS: IPRATROPIUM/ALBUTEROL SULFATE 3 ML SOLUTION IH SCH ×4 (00:23→18:32)
[2021-06-03] MEDS: CEFAZOLIN SODIUM 1 GM VIAL IVP SCH ×2 (03:37→08:22)
[2021-06-03 04:07] LABS: HEMATOCRIT 45.6 % (42-54); MEAN CORPUSCULAR HEMOGLOBIN 32.6 pg (27.0-33.0); MEAN CORPUSCULAR HGB CONC 31.1 g/dL (32.0-36.0); MEAN CORPUSCULAR VOLUME 104.6 fL (79-99); PLATELET COUNT (AUTO) 268 K/uL (130-400); RED BLOOD CELL COUNT(AUTO) 4.36 MIL/uL (4.50-6.20); RED CELL DISTRIBUTION WIDTH 13.8 % (11.0-15.5); WHITE BLOOD COUNT (AUTO) 19.6 K/uL (4.8-10.8)
[2021-06-03 04:22] LABS: CREATININE 1.6 mg/dL (0.5-1.5); MAGNESIUM 2.8 mg/dL (1.80-2.40); PHOSPHORUS 4.2 mg/dL (2.5-4.9); POTASSIUM 4.8 mmol/L (3.5-5.1)
[2021-06-03] MEDS: LACTULOSE 20 GM/30 ML UDCUP PO SCH ×4 (04:35→23:17)
[2021-06-03 04:47] LABS: BAND NEUTROPHILS % (MANUAL) 2 % (0-2); BASOPHILS % (MANUAL) 1 % (0-2); LYMPHOCYTES % (MANUAL) 8 % (22-44); MONOCYTES % (MANUAL) 11 % (2-9); SEGMENTED NEUTROPHILS % 78 % (40-70)
[2021-06-03 04:48] LABS: MAN.DIFF COMMENT-IMPRESSION MANUAL DIFFERENTIAL; PLATELET MORPHOLOGY COMMENT ADEQUATE
[2021-06-03] MEDS: CHLORDIAZEPOXIDE HCL 25 MG CAP PO SCH (08:16)
[2021-06-03] MEDS: DEXTROSE 50%-WATER 50 ML DISP.SYRIN IV SCH (08:17)
[2021-06-03] MEDS: NICOTINE 21 MG/ 24 HR PATCH TD SCH (08:17)
[2021-06-03] MEDS: THIAMINE HCL 100 MG TABLET PO SCH (08:21)
[2021-06-03] MEDS: FOLIC ACID 1 MG TABLET PO SCH (08:21)
[2021-06-03] MEDS: AMLODIPINE 5 MG TAB PO SCH (08:21)
[2021-06-03] MEDS: MULTIVITAMIN TABLET PO SCH (08:21)
[2021-06-03] MEDS: SOLU-MEDROL 40MG VIAL IVP SCH ×2 (08:22→20:17)
[2021-06-03] MEDS: FAMOTIDINE 20MG VIAL IV SCH ×2 (08:22→20:18)
[2021-06-03] MEDS: THIAMINE HCL 100 MG/ML 2ML VIAL IVP SCH (08:22)
[2021-06-03] MEDS: ENOXAPARIN SODIUM 30 MG/0.3 ML SQ SCH (08:23)
[2021-06-03] MEDS: INSULIN HUMULIN R 100 UNIT/ML 3ML IV SCH (08:26)
[2021-06-03] MEDS ORDERED: LACTULOSE 20 GM/30 ML UDCUP PR SCH (11:30)
[2021-06-03] MEDS ORDERED: ZOSYN 3.375GM +NS 50ML IV SCH (11:30)
[2021-06-03] MEDS ORDERED: PHARMACY COMMUNICATION MISC SCH (12:00)
[2021-06-03] MEDS: ZOSYN 3.375GM+NS 50ML 50 ML IV SCH ×2 (12:01→20:19)
[2021-06-03] MEDS: DEXTROSE 5%-WATER 1,000 ML IV SCH ×2 (12:01→20:19)
[2021-06-03] MEDS ORDERED: LORAZEPAM 2 MG/ML 1 ML VIAL IVP PRN (13:00)
[2021-06-03 13:27] LABS: APPEARANCE,URINE Clear (CLEAR); BILIRUBIN,URINE Moderate (NEGATIVE); COLOR,URINE Dark Yellow (YELLOW); GLUCOSE, URINE (UA) Negative (NEGATIVE); KETONES,URINE Negative (NEGATIVE); LEUKOCYTE ESTERASE ,URINE Small (NEGATIVE); NITRATE,URINE Positive (NEGATIVE); OCCULT BLOOD,URINE Moderate (NEGATIVE); PROTEIN,URINE Trace mg/dL (NEGATIVE)
[2021-06-03 13:29] LABS: CREATININE,URINE RANDOM 102 mg/dL (30-135); POTASSIUM,URINE RANDOM 57 mmol/L (25-125); SODIUM,URINE RANDOM < 14 mmol/l (40-220)
[2021-06-03 14:16] LABS: BACTERIA,URINE Rare /HPF (None Seen); YEAST,URINE BUDDING Moderate /HPF (None Seen)
[2021-06-03 14:17] LABS: MUCUS,URINE Few LPF (None Seen); SQUAMOUS EPITHELIAL CELL,UR Few /HPF (0-2)
[2021-06-03] MEDS: ACETAMINOPHEN 325 MG TAB PO PRN (20:18)
[2021-06-04] VITALS (37 sets, daily range): BP systolic 110–175; BP diastolic 62–102
[2021-06-04 04:23] LABS: HEMATOCRIT 39.5 % (42-54); MEAN CORPUSCULAR HEMOGLOBIN 33.3 pg (27.0-33.0); MEAN CORPUSCULAR HGB CONC 30.6 g/dL (32.0-36.0); MEAN CORPUSCULAR VOLUME 108.8 fL (79-99); PLATELET COUNT (AUTO) 179 K/uL (130-400); RED BLOOD CELL COUNT(AUTO) 3.63 MIL/uL (4.50-6.20); RED CELL DISTRIBUTION WIDTH 14.4 % (11.0-15.5); WHITE BLOOD COUNT (AUTO) 24.6 K/uL (4.8-10.8)
[2021-06-04] MEDS: ZOSYN 3.375GM+NS 50ML 50 ML IV SCH ×3 (04:24→20:24)
[2021-06-04] MEDS: LACTULOSE 20 GM/30 ML UDCUP PO SCH ×6 (04:26→20:26)
[2021-06-04 04:43] LABS: BILIRUBIN,TOTAL 8.3 mg/dL (0.2-1.0); CREATININE 2.2 mg/dL (0.5-1.5); MAGNESIUM 3.2 mg/dL (1.80-2.40); PHOSPHORUS 4.6 mg/dL (2.5-4.9)
[2021-06-04 05:41] LABS: LYMPHOCYTES % (MANUAL) 6 % (22-44); MONOCYTES % (MANUAL) 6 % (2-9); SEGMENTED NEUTROPHILS % 88 % (40-70)
[2021-06-04 05:42] LABS: MAN.DIFF COMMENT-IMPRESSION MANUAL DIFFERENTIAL; PLATELET MORPHOLOGY COMMENT ADEQUATE
[2021-06-04] MEDS: IPRATROPIUM/ALBUTEROL SULFATE 3 ML SOLUTION IH SCH ×4 (06:33→18:20)
[2021-06-04] MEDS: ACETYLCYSTEINE 10% 100MG/ML 4ML VIAL IH SCH ×2 (06:33)
[2021-06-04] MEDS: SOLU-MEDROL 40MG VIAL IVP SCH (08:52)
[2021-06-04] MEDS: FAMOTIDINE 20MG VIAL IV SCH ×2 (08:52→20:26)
[2021-06-04] MEDS: ENOXAPARIN SODIUM 30 MG/0.3 ML SQ SCH (08:52)
[2021-06-04] MEDS: AMLODIPINE 5 MG TAB PO SCH (08:53)
[2021-06-04] MEDS: MULTIVITAMIN TABLET PO SCH (08:53)
[2021-06-04] MEDS: THIAMINE HCL 100 MG TABLET PO SCH (08:53)
[2021-06-04] MEDS: FOLIC ACID 1 MG TABLET PO SCH (08:53)
[2021-06-04] MEDS: DEXTROSE 5%-WATER 1,000 ML IV SCH ×2 (08:58→17:16)
[2021-06-04] MEDS: THIAMINE HCL 100 MG/ML 2ML VIAL IVP SCH (08:59)
[2021-06-04] MEDS: DEXTROSE 50%-WATER 50 ML DISP.SYRIN IV SCH (09:00)
[2021-06-04] MEDS ORDERED: 0.9%NACL 50ML 50 ML IV ONE (10:27)
[2021-06-04] MEDS ORDERED: ALBUMIN 25% IV SCH ×2 (11:30)
[2021-06-04] MEDS: RIFAXIMIN 550 MG TABLET PO SCH ×2 (11:33→20:26)
[2021-06-04] MEDS ORDERED: WATER IV ONE ×2 (12:30)
[2021-06-04] MEDS ORDERED: DEXTROSE 5% IV ONE ×2 (12:30)
[2021-06-04] MEDS ORDERED: ACETYLCYSTEINE IV ONE ×2 (12:30)
[2021-06-04] MEDS ORDERED: PEG 3350/NA SULF,BICARB,CL/KCL 4000 ML SOLN PO SCH (14:00)
[2021-06-05] VITALS (38 sets, daily range): BP systolic 125–167; BP diastolic 71–97
[2021-06-05] MEDS: IPRATROPIUM/ALBUTEROL SULFATE 3 ML SOLUTION IH SCH ×5 (00:12→23:44)
[2021-06-05] MEDS ORDERED: EPINEPHRINE PF 1MG AMP 10 MG in 0.9% NACL 250ML 250 ML IV SCH (02:00)
[2021-06-05] MEDS: ZOSYN 3.375GM+NS 50ML 50 ML IV SCH ×3 (02:51→20:26)
[2021-06-05] MEDS: LACTULOSE 20 GM/30 ML UDCUP PO SCH ×8 (02:53→23:00)
[2021-06-05] MEDS: DEXTROSE 5%-WATER 1,000 ML IV SCH ×3 (03:14→23:30)
[2021-06-05 04:13] LABS: HEMATOCRIT 40.6 % (42-54); MEAN CORPUSCULAR HEMOGLOBIN 32.6 pg (27.0-33.0); MEAN CORPUSCULAR HGB CONC 30.8 g/dL (32.0-36.0); MEAN CORPUSCULAR VOLUME 105.7 fL (79-99); RED BLOOD CELL COUNT(AUTO) 3.84 MIL/uL (4.50-6.20); RED CELL DISTRIBUTION WIDTH 14.3 % (11.0-15.5); WHITE BLOOD COUNT (AUTO) 28.4 K/uL (4.8-10.8)
[2021-06-05 04:25] LABS: INR 1.35 (0.85-1.15); PROTHROMBIN TIME 14.3 SEC (9.6-11.6)
[2021-06-05 04:30] LABS: ALBUMIN 2.3 g/dL (3.5-5.0); BILIRUBIN,TOTAL 8.8 mg/dL (0.2-1.0); CREATININE 2.3 mg/dL (0.5-1.5); MAGNESIUM 3.4 mg/dL (1.80-2.40); PHOSPHORUS 4.1 mg/dL (2.5-4.9); POTASSIUM 4.2 mmol/L (3.5-5.1); TOTAL PROTEIN, SERUM 9.6 g/dL (6.0-8.3)
[2021-06-05] MEDS ORDERED: PHARMACY COMMUNICATION MISC SCH (07:30)
[2021-06-05] MEDS: RIFAXIMIN 550 MG TABLET PO SCH ×2 (07:48→20:27)
[2021-06-05] MEDS: FOLIC ACID 1 MG TABLET PO SCH (07:48)
[2021-06-05] MEDS: MULTIVITAMIN TABLET PO SCH (07:48)
[2021-06-05] MEDS: AMLODIPINE 5 MG TAB PO SCH (07:48)
[2021-06-05] MEDS: FAMOTIDINE 20MG VIAL IV SCH ×2 (07:49→20:27)
[2021-06-05] MEDS: THIAMINE HCL 100 MG/ML 2ML VIAL IVP SCH (07:49)
[2021-06-05] MEDS: ENOXAPARIN SODIUM 30 MG/0.3 ML SQ SCH (07:50)
[2021-06-05] MEDS: THIAMINE HCL 100 MG TABLET PO SCH (07:50)
[2021-06-05 07:53] LABS: ABG BASE EXCESS 0.6 mmol/L (-2.0-3.0); ABG HCO3 24.1 mmol/L (21.0-28.0); ABG OXYGEN SATURATION 97.9 % (95.0-99.0); ABG PCO2 36 mmHg (35-48)
[2021-06-05 07:53] LABS: ABG BASE EXCESS 0.3 mmol/L (-2.0-3.0); ABG HCO3 23.5 mmol/L (21.0-28.0); ABG OXYGEN SATURATION 96.5 % (95.0-99.0); ABG PCO2 34 mmHg (35-48)
[2021-06-05 07:54] LABS: ABG BASE EXCESS -0.6 mmol/L (-2.0-3.0); ABG HCO3 22.8 mmol/L (21.0-28.0); ABG OXYGEN SATURATION 98.5 % (95.0-99.0); ABG PCO2 34 mmHg (35-48)
[2021-06-05] MEDS ORDERED: 0.9%NACL 50ML 50 ML IV ONE (09:52)
[2021-06-05] MEDS ORDERED: LEVOFLOXACIN 500 MG/D5W 100 ML 100 ML IV SCH (13:30)
[2021-06-05] MEDS ORDERED: 0.9%NACL 100ML 100 ML ONE (20:22)
[2021-06-06] VITALS (29 sets, daily range): BP systolic 135–155; BP diastolic 76–93
[2021-06-06] MEDS: LACTULOSE 20 GM/30 ML UDCUP PO SCH ×6 (03:16→16:10)
[2021-06-06 03:46] LABS: BASOPHILS % (AUTO) 0.1 % (0.0-5.0); HEMATOCRIT 38.5 % (42-54); MEAN CORPUSCULAR HEMOGLOBIN 32.4 pg (27.0-33.0); MEAN CORPUSCULAR HGB CONC 30.9 g/dL (32.0-36.0); MEAN CORPUSCULAR VOLUME 104.9 fL (79-99); MONOCYTES % (AUTO) 7.4 % (3.0-13.0); NEUTROPHILS % (AUTO) 86.9 % (40.0-77.0); PLATELET COUNT (AUTO) 191 K/uL (130-400); RED BLOOD CELL COUNT(AUTO) 3.67 MIL/uL (4.50-6.20); RED CELL DISTRIBUTION WIDTH 14.4 % (11.0-15.5); WHITE BLOOD COUNT (AUTO) 23.7 K/uL (4.8-10.8)
[2021-06-06 04:18] LABS: ALBUMIN 2.1 g/dL (3.5-5.0); BILIRUBIN,TOTAL 9.4 mg/dL (0.2-1.0); CREATININE 2.2 mg/dL (0.5-1.5); MAGNESIUM 3.6 mg/dL (1.80-2.40); TOTAL PROTEIN, SERUM 9.1 g/dL (6.0-8.3)
[2021-06-06] MEDS: ZOSYN 3.375GM+NS 50ML 50 ML IV SCH ×2 (04:31→11:14)
[2021-06-06] MEDS: IPRATROPIUM/ALBUTEROL SULFATE 3 ML SOLUTION IH SCH ×2 (06:44→11:14)
[2021-06-06] MEDS: THIAMINE HCL 100 MG/ML 2ML VIAL IVP SCH (08:18)
[2021-06-06] MEDS: FAMOTIDINE 20MG VIAL IV SCH (08:18)
[2021-06-06] MEDS: RIFAXIMIN 550 MG TABLET PO SCH (08:19)
[2021-06-06] MEDS: AMLODIPINE 5 MG TAB PO SCH (08:19)
[2021-06-06] MEDS: THIAMINE HCL 100 MG TABLET PO SCH (08:19)
[2021-06-06] MEDS: ENOXAPARIN SODIUM 30 MG/0.3 ML SQ SCH (08:19)
[2021-06-06] MEDS: MULTIVITAMIN TABLET PO SCH (08:19)
[2021-06-06] MEDS: FOLIC ACID 1 MG TABLET PO SCH (08:19)
[2021-06-06 09:25] LABS: ABG OXYGEN SATURATION 97.6 % (95.0-99.0); ABG PCO2 31 mmHg (35-48)
[2021-06-06] MEDS: DEXTROSE 5%-WATER 1,000 ML IV SCH (13:42)
[2021-06-06] MEDS ORDERED: LEVOFLOXACIN 250 MG/D5W 50ML 50 ML IVPB SCH (14:00)
== END 2021-06-06 17:40 | disposition hospice, home (50) | DRG 870 ==
LOC: EDH 07:29 → EDHIP 10:30 → 4CH 15:28 → 4BH 05-25 09:24 → 4CH 05-26 09:18 → 2DH 05-26 13:43 → 2CH 05-27 22:24
PROVIDERS: ADMIT Hospitalist; ATTEND Hospitalist
PROC: 0F9430Z Drainage of Gallbladder with Drainage Device, Percutaneous Approach (ICD-10-PCS; principal; 2021-05-26)
PROC: 5A1955Z Respiratory Ventilation, Greater than 96 Consecutive Hours (ICD-10-PCS; 2021-05-26)
PROC: 0BH17EZ Insertion of Endotracheal Airway into Trachea, Via Natural or Artificial Opening (ICD-10-PCS; 2021-05-26)
PROC: 5A09357 Assistance with Respiratory Ventilation, Less than 24 Consecutive Hours, Continuous Positive Airway Pressure (ICD-10-PCS; 2021-05-30)
PROC: 5A09357 Assistance with Respiratory Ventilation, Less than 24 Consecutive Hours, Continuous Positive Airway Pressure (ICD-10-PCS; 2021-05-31)
PROC: 5A09557 Assistance with Respiratory Ventilation, Greater than 96 Consecutive Hours, Continuous Positive Airway Pressure (ICD-10-PCS; 2021-06-02)
PROC: 0D9670Z Drainage of Stomach with Drainage Device, Via Natural or Artificial Opening (ICD-10-PCS; 2021-06-02)
DX: A41.01 Sepsis due to Methicillin susceptible Staphylococcus aureus (principal); J96.01 Acute respiratory failure with hypoxia; J15.6 Pneumonia due to other Gram-negative bacteria; K72.00 Acute and subacute hepatic failure without coma; R65.21 Severe sepsis with septic shock; E87.1 Hypo-osmolality and hyponatremia; E44.0 Moderate protein-calorie malnutrition; N17.9 Acute kidney failure, unspecified; K81.0 Acute cholecystitis; D68.4 Acquired coagulation factor deficiency; F10.231 Alcohol dependence with withdrawal delirium; N39.0 Urinary tract infection, site not specified; E87.0 Hyperosmolality and hypernatremia; K56.609 Unspecified intestinal obstruction, unspecified as to partial versus complete obstruction; J95.851 Ventilator associated pneumonia; Z66 Do not resuscitate; E87.6 Hypokalemia; E66.01 Morbid (severe) obesity due to excess calories; E86.0 Dehydration; D69.6 Thrombocytopenia, unspecified; K74.60 Unspecified cirrhosis of liver; F12.10 Cannabis abuse, uncomplicated; F14.10 Cocaine abuse, uncomplicated; K76.0 Fatty (change of) liver, not elsewhere classified; Z20.822 Contact with and (suspected) exposure to COVID-19; M19.90 Unspecified osteoarthritis, unspecified site; Z68.35 Body mass index [BMI] 35.0-35.9, adult; B18.2 Chronic viral hepatitis C; D64.9 Anemia, unspecified; B95.61 Methicillin susceptible Staphylococcus aureus infection as the cause of diseases classified elsewhere; E83.52 Hypercalcemia; E86.1 Hypovolemia; E87.5 Hyperkalemia; G83.9 Paralytic syndrome, unspecified; I10 Essential (primary) hypertension; R16.1 Splenomegaly, not elsewhere classified; K43.9 Ventral hernia without obstruction or gangrene; K70.11 Alcoholic hepatitis with ascites; K72.10 Chronic hepatic failure without coma; Z72.0 Tobacco use
CPT/HCPCS: 10030; 36415; 36600; 47490; 70450; 71045; 72125; 72128; 72131; 72192; 73130; 74018; 74176; 76705; 76770; 78226; 80048; 80053; 80061; 80074; 80202; 80305; 81001; 82140; 82150; 82306; 82340; 82435; 82436; 82550; 82570; 82803; 82947; 82948; 83605; 83690; 83735; 83880; 83935; 83970; 84100; 84132; 84133; 84145; 84295; 84300; 84478; 84550; 85018; 85025; 85027; 85610; 85651; 85730; 86140; 86757; 86850; 86900; 86901; 86923; 87040; 87071; 87077; 87088; 87186; 87205; 87522; 87635; 87902; 93306; 94002; 94003; 94640; 94660; 94664; 99291; A9537; C9803; G0378; J0330; J0360; J0610; J0690; J0696; J1100; J1644; J1650; J1815; J1885; J1940; J1956; J2001; J2060; J2250; J2270; J2405; J2543; J2704; J2710; J2920; J3010; J3370; J3411; J3430; J3490; J7030; J7050; J7070; J7120; J7608; P9046; P9047; Q9967

== ENCOUNTER 2021-06-06 17:41 | Inpatient (IN) | payer OTHER ==
[~2021-06-06] VITALS: Ht 172.7 cm; Wt 107.1 kg
[2021-06-06 19:15] VITALS: BP 151/84
[2021-06-06] MEDS ORDERED: ACETAMINOPHEN 650 MG SUPPOSITORY RC PRN (19:30)
[2021-06-06] MEDS ORDERED: ONDANSETRON 4MG INJ IVP PRN (19:30)
[2021-06-06] MEDS ORDERED: BISACODYL 10 MG SUPP.RECT RC PRN (19:30)
[2021-06-06] MEDS ORDERED: MORPHINE 2 MG SYG IVP PRN ×2 (19:30)
[2021-06-06] MEDS ORDERED: GLYCOPYRROLATE 0.2 MG/ML 5 ML VIAL IVP PRN (19:30)
[2021-06-06] MEDS: MORPHINE 2 MG SYG IVP PRN (23:13)
[2021-06-07] MEDS: LORAZEPAM 2 MG/ML 1 ML VIAL IVP PRN (01:53)
[2021-06-07 04:40] VITALS: BP 143/83
[2021-06-07 07:30] VITALS: BP 138/78
[2021-06-07 20:49] VITALS: BP 137/74
[2021-06-08 07:30] VITALS: BP 113/64
[2021-06-08 20:00] VITALS: BP 108/61
[2021-06-09 07:20] VITALS: BP 102/63
[2021-06-09] MEDS: LORAZEPAM 2 MG/ML 1 ML VIAL IVP PRN ×2 (15:31→17:43)
[2021-06-09] MEDS: MORPHINE 2 MG SYG IVP PRN ×5 (15:44→23:19)
[2021-06-09 20:00] VITALS: BP 84/47
[2021-06-10] MEDS: LORAZEPAM 2 MG/ML 1 ML VIAL IVP PRN (00:04)
== END 2021-06-10 02:05 | DRG 871 ==
LOC: 2CH 17:41 → 3DH 06-07 02:58
PROVIDERS: ADMIT Internal Medicine Hematology & Oncology; ATTEND Internal Medicine Hematology & Oncology
PROC: 5A09457 Assistance with Respiratory Ventilation, 24-96 Consecutive Hours, Continuous Positive Airway Pressure (ICD-10-PCS; principal; 2021-06-06)
PROC: 5A09357 Assistance with Respiratory Ventilation, Less than 24 Consecutive Hours, Continuous Positive Airway Pressure (ICD-10-PCS; 2021-06-08)
DX: A41.9 Sepsis, unspecified organism (principal); G93.41 Metabolic encephalopathy; R65.21 Severe sepsis with septic shock; J96.00 Acute respiratory failure, unspecified whether with hypoxia or hypercapnia; F10.20 Alcohol dependence, uncomplicated; K70.30 Alcoholic cirrhosis of liver without ascites; Z66 Do not resuscitate; Z51.5 Encounter for palliative care
CPT/HCPCS: 94660; G0378; J2060